=== PATIENT | female | born 1980 | race Two or more races ===

== ENCOUNTER 2024-11-15 12:09 | Emergency (ER) | payer OTHER ==
[~2024-11-15] VITALS: Ht 152.4 cm; Wt 68.0 kg
[2024-11-15] MEDS ORDERED: ACETAMINOPHEN 500 MG GEL..CAP PO ONE (14:45)
[2024-11-15] MEDS ORDERED: GUAIFENESIN/DEXTROMETHORPHAN 100MG/10ML BLIST.PACK PO ONE ×2 (14:45→16:22)
[2024-11-15 16:48] LABS: BASO % 0.3 % (0.1-1.2); EOS # 0.01 (0.04-0.54); EOS % 0.2 % (0.7-7.0); LYMPH # 1.21 (1.18-3.74); LYMPH % 18.5 % (19.3-53.1); MEAN PLATELET VOLUME 9.80 fl (9.4-12.4); MONO # 0.65 (0.24-0.82); MONO % 9.9 % (4.7-12.5); NEUT # 4.64 (1.56-6.13); NEUT % 70.9 % (34.0-71.1); RED CELL DISTRIBUTION WIDTH 13.3 % (11.6-14.4)
[2024-11-15 17:01] LABS: COVID-19 AG NEGATIVE (NEGATIVE)
[2024-11-15] MEDS ORDERED: OSEL75CA PO (17:29)
[2024-11-15] MEDS ORDERED: ZYRTEC10 MG PO (17:29)
[2024-11-15] MEDS ORDERED: TUSSIN DM LIQU118 ML PO (17:29)
[2024-11-15] MEDS ORDERED: OSELTAMIVIR PHOSPHATE 75 MG CAPSULE PO ONE ×2 (17:45→17:57)
== END 2024-11-15 18:10 | disposition home or self-care (01) ==
LOC: ER 12:10
PROVIDERS: General Practice
DX: J10.1 Influenza due to other identified influenza virus with other respiratory manifestations (principal); Z20.822 Contact with and (suspected) exposure to COVID-19